=== PATIENT | male | born 1975 | race Caucasian/White ===

== ENCOUNTER 2019-10-12 05:45 | Day surgery (SDC) | payer OTHER, SELFPAY ==
--- NOTE | 2019-10-06 10:21 | EKG12_ITS ---
Test Reason : PRE OP Blood Pressure : / mmHG Vent. Rate : 077 BPM Atrial Rate : 077 BPM P-R Int : 182 ms QRS Dur : 100 ms QT Int : 370 ms P-R-T Axes : 047 -15 029 degrees QTc Int : 418 ms Normal sinus rhythm with sinus arrhythmia Inferior infarct , age undetermined , cannot be excluded Poor R-Wave Progression Abnormal ECG Confirmed by RIMMA MCGOVERN, MALKA ([id number]), photograph editor CARLOZ CARRILLO ([id number]) on 10/07/2019 11:16:42 AM Referred By: Moises Suero Confirmed By:MALKA SHANKS MD
[2019-10-06 10:46] LABS: Hematocrit 49.1 % (40-54); Hemoglobin 16.7 g/dL (13.0-16.5); Mean Corpuscular Hgb 30.9 pg (27.0-32.0); Mean Corpuscular Volume 90.9 fL (80-94); Mean Platelet Vol. 11.1 fl (6.2-12.0); Platelet Count 187 K/mm3 (150-450); RBC Distribution Width CV 12.1 % (11.6-14.6); RBC Distribution Width SD 40.2 fl (35.1-43.9); White Blood Count 7.2 K/mm3 (4.4-11.0)
[2019-10-06 11:13] LABS: Anion Gap 8 (5-15); BUN 11 mg/dL (7-18); BUN/Creat Ratio 10.6 RATIO (10-20); Calcium,Total 9.1 mg/dL (8.5-10.1); Chloride 104 mmol/L (98-107); Creatinine, Serum 1.04 mg/dL (0.70-1.30); EST Glomerular Filtration Rate 83 mL/min (>60); Est Glom Filt Rate - Afr Amer 100 mL/min (>60); Glucose 208 mg/dL (74-106); Potassium 4.2 mmol/L (3.5-5.1); Sodium Level 140 mmol/L (136-145)
[2019-10-12 06:24] VITALS: BP 134/80; PULSE 88; RESP 16; TEMP 36.8; O2SAT 94; BMI 47.9
[2019-10-12] MEDS: Lactated Ringers 1,000 ML 100 ML IV (06:51)
[2019-10-12] MEDS: Bupiv/Epi 0.25% 30 ML Vial (08:15)
[2019-10-12] MEDS: Epinephrine (1 mg/ml) 1 MG/ML VIAL (08:15)
[2019-10-12 08:46] VITALS: BP 111/51; BP 134/80; PULSE 73; RESP 16; TEMP 36.1; O2SAT 96
--- NOTE | 2019-10-12 08:59 | OP.PCM_ITS ---
Report of Operation Date of Procedure: 10/12/19 Pre-Operative Diagnosis: SAIS, AC Arthrosis, Bicipital tendonitis, possible rotator cuff tear right shoulder Post-Operative Diagnosis: Same with no rotator cuff tear Surgery/Procedure Performed:: ASD, Aileen procedure, biceps tenotomy right metal sprayer protective coating: Geo Ervin Type of Anesthesia:: General Anesthesiologist: Benjie Shea - Lisa VTE Documentation VTE Present on Admission: No VTE Mechan Device Prophylaxis: SCD's, Thigh High LUKE Hose VTE Pharm Prophylaxis ordered?: No Reason prophylaxis not ordered:: Treatment Not Indicated
[2019-10-12 09:00] VITALS: BP 110/70; BP 134/80; PULSE 65; RESP 16; O2SAT 94
[2019-10-12 09:15] VITALS: BP 114/66; BP 134/80; PULSE 82; RESP 16; O2SAT 95
[2019-10-12 09:21] VITALS: BP 115/79; BP 134/80; PULSE 80; RESP 16; TEMP 36.1; O2SAT 93
[2019-10-12] MEDS: HYDROcodone Bitartrate/Apap 5/325 Tablet PO (09:36)
[2019-10-12 09:49] VITALS: BP 134/80
== END 2019-10-12 09:53 | disposition home or self-care (01) ==
LOC: SDC 05:50 → AC 05:50
PROVIDERS: Family Provider Nurse Practitioner Family; PCP Nurse Practitioner Family; Referring Provider Orthopaedic Surgery; Visit Provider Orthopaedic Surgery
PROC: (CPT 29827; principal; 2019-10-12 06:55)
DX: M75.21 Bicipital tendinitis, right shoulder (principal); M19.011 Primary osteoarthritis, right shoulder; M75.41 Impingement syndrome of right shoulder; E66.9 Obesity, unspecified; I10 Essential (primary) hypertension; E78.00 Pure hypercholesterolemia, unspecified; G47.30 Sleep apnea, unspecified; F17.210 Nicotine dependence, cigarettes, uncomplicated; Z68.43 Body mass index [BMI] 50.0-59.9, adult; Z79.899 Other long term (current) drug therapy
CPT/HCPCS: 23405; 29824; 36415; 80048; 85027; 93005; J7120; J2405

== ENCOUNTER → 2021-08-22 09:26 | Outpatient (CLI) | payer OTHER, SELFPAY ==
--- NOTE | 2021-08-25 10:29 | PFT ---
INTRODUCTION: The patient is a 46-year-old male that presents for pulmonary function studies secondary to a diagnosis of asthma. Respiratory therapy reported good patient effort. Bronchodilators were used during testing. INTERPRETATION: Forced expiration spirometry demonstrates no evidence of a large airways obstructive ventilatory defect. There was a significant response to aerosolized bronchodilators. Spirograms are of good quality and plateau normally. Body plethysmography was performed and revealed a decreased TLC to 5.1 L, 64% of predicted, indicative of a moderate restrictive ventilatory impairment. Diffusing capacity by single breath CO is within normal limits. IMPRESSION: Stigmata of small airways disease with significant bronchodilator response and moderate restrictive ventilatory impairment, likely secondary to body habitus.
== END ==
PROVIDERS: PCP Nurse Practitioner Family
DX: J45.998 Other asthma (principal)
CPT/HCPCS: 94060; 94726; 94729

== ENCOUNTER → 2023-03-20 | Outpatient (CLI) | payer OTHER, SELFPAY ==
[2023-03-20 17:10] LABS: CRP < 2.90 mg/L (0.0-3.0)
[2023-03-22 16:09] LABS: Endomysial Antibody IgA Negative (Negative); Immunoglobulin A 60 mg/dL (90-386); t-Transglutaminase IgA <2 U/mL (0-3)
== END | disposition home or self-care (01) ==
LOC: MTLAB 15:11
PROVIDERS: PCP Registered Nurse; Referring Provider Internal Medicine Gastroenterology; Visit Provider Internal Medicine Gastroenterology
DX: R19.7 Diarrhea, unspecified (principal)
CPT/HCPCS: 36415; 82784; 83516; 86140; 86255